=== PATIENT | female | born 1955 ===

== ENCOUNTER 2021-06-19 11:22 | Emergency (ER) | payer OTHER ==
[~2021-06-19] VITALS: Ht 154.9 cm; Wt 76.2 kg
[2021-06-19] MEDS ORDERED: ENALAPRIL MALE2.5 MG PO (12:02)
[2021-06-19] MEDS ORDERED: HYDROCHLOROTHIA25 MG PO (12:02)
[2021-06-19] MEDS ORDERED: SIMVASTATIN20 MG PO (12:02)
[2021-06-19] MEDS ORDERED: INVOKAMET 50-51 EACH PO (12:02)
== END 2021-06-19 15:37 | disposition home or self-care (01) ==
LOC: ER 11:22
DX: S00.83XA Contusion of other part of head, initial encounter (principal); S10.83XA Contusion of other specified part of neck, initial encounter; S60.222A Contusion of left hand, initial encounter; W18.09XA Striking against other object with subsequent fall, initial encounter; Y93.89 Activity, other specified; Y92.091 Bathroom in other non-institutional residence as the place of occurrence of the external cause; Y99.8 Other external cause status